=== PATIENT | female | born 1935 | race Caucasian/White ===

== ENCOUNTER 2021-08-19 14:00 | Outpatient (RCR) | payer MEDICARE, OTHER, SELFPAY | END 2022-05-12 14:23 | disposition home or self-care (01) | LOC: HO.WCC 14:00 | PROVIDERS: PCP Internal Medicine; Referring Provider Internal Medicine; Visit Provider Physician Assistant | DX: T81.31XA Disruption of external operation (surgical) wound, not elsewhere classified, initial encounter (principal); L97.111 Non-pressure chronic ulcer of right thigh limited to breakdown of skin; S72.001D Fracture of unspecified part of neck of right femur, subsequent encounter for closed fracture with routine healing; E44.1 Mild protein-calorie malnutrition; G62.9 Polyneuropathy, unspecified | CPT/HCPCS: 11042; 11045; 97597; 99212; 99213; 99214 ==

== ENCOUNTER 2021-08-19 15:46 | Outpatient (REF) | payer MEDICARE, OTHER, SELFPAY ==
--- NOTE | ~2021-08-19 | XR_ITS ---
EXAMINATION: XR HIP, RIGHT CLINICAL INFORMATION: Nonhealing hip wound. COMPARISON: None TECHNIQUE: Two views of the right hip. FINDINGS: There is a right hip intramedullary femoral cynthia and nail for an old healed fracture. The bilateral hip joint space and SI joint space is normal. AP and frog-leg views right hip reveal intramedullary femoral cynthia and a hip nail for an old healed right femoral neck fracture. There is no periprosthetic fracture or lucency. The soft tissues are normal. XR/XR hip RT min 2V IMPRESSION: Right hip intramedullary femoral cynthia and nail for an old healed fracture. No periprosthetic fracture seen.
[2021-08-19 16:14] LABS: MANUAL DIFF FLAG NO
[2021-08-19 16:21] LABS: Basophils Percent Auto 0.4 % (0-2); Eosinophils Absolute Auto 0.3 X10*3/uL (0.0-0.4); Eosinophils Percent Auto 4.6 % (0-4); Hematocrit 37.4 % (37.0-47.0); Hemoglobin 12.1 g/dl (12.0-16.0); Imm Gran Abs Auto 0.02 X10*3/uL (0.00-0.03); Imm Gran Pct Auto 0.3 % (0.0-0.4); Lymphocytes Absolute Auto 1.8 X10*3/uL (1.2-4.9); Lymphocytes Percent Auto 25.5 % (20-40); Mean Corpuscular HGB Conc 32.4 g/dl (31.0-35.0); Mean Corpuscular Hemoglobin 34.1 pg (27.0-33.0); Mean Corpuscular Volume 105.4 fL (80.0-98.0); Mean Platelet Volume 9.6 fL (9.4-12.3); Monocytes Absolute Auto 0.6 X10*3/uL (0.1-1.2); Monocytes Percent Auto 8.4 % (2-11); Neutrophils Absolute Auto 4.2 x10*3/uL (2.0-8.3); Neutrophils Percent Auto 60.8 % (45-73); Platelet Count 238 X10*3/uL (160-400); Red Blood Count 3.55 X10*6/uL (4.20-5.50); Red Cell Distribution Width 12.8 % (11.0-16.0); White Blood Count 6.9 X10*3/uL (4.8-10.8)
[2021-08-19 16:42] LABS: Estimated Average Glucose 111 mg/dL; Hemoglobin A1c % 5.5 %
[2021-08-19 16:47] LABS: Anion Gap 12 (12-20); Blood Urea Nitrogen 13 mg/dL (9-16); C Reactive Protein 0.17 mg/dL (< or = 0.50); Calcium 9.5 mg/dL (8.4-10.2); Carbon Dioxide 28 mmol/L (22-29); Chloride 106 mmol/L (96-108); Estimated Glomerular Filt Rate 57; Glucose Random 120 mg/dL (60-115); Potassium 4.7 mmol/L (3.3-5.1); Sodium 141 mmol/L (135-145)
[2021-08-19 16:57] LABS: Erythrocyte Sedimentation Rate 11 MM/HR (0-20)
== END 2021-08-19 15:47 | disposition home or self-care (01) ==
LOC: HO.LAB 15:46
PROVIDERS: PCP Internal Medicine; Visit Provider Physician Assistant
DX: S71.001D Unspecified open wound, right hip, subsequent encounter (principal)
CPT/HCPCS: 36415; 73502; 80048; 83036; 84134; 85025; 85652; 86140